=== PATIENT | male | born 1965 | race African-American/Black ===

== ENCOUNTER 2017-07-28 12:16 | Emergency (ER) | payer OTHER ==
[~2017-07-28] VITALS: Ht 177.8 cm; Wt 105.0 kg
[~2017-07-28 12:16] MED LIST: METF500T7 PO
[2017-07-28] MEDS ORDERED: LISI2.5T47 PO (12:22)
[2017-07-28] MEDS ORDERED: CLONIDINE 0.1MG TABLET PO ONE (16:00)
[2017-07-28 16:16] LABS: BASOPHILS % 0.6 % (0.0-2.0); EOSINOPHILS % 0.9 % (0.0-5.0); HEMATOCRIT. 42.2 % (42.0-52.0); LYMPHOCYTES % 23.3 % (20.0-50.0); MEAN CORPUSCULAR HEMOGLOBIN 27.4 pg (28.0-32.0); MEAN CORPUSCULAR VOLUME 82.6 fL (80.0-94.0); MEAN PLATELET VOLUME 8.5 fl (7.4-10.4); MONOCYTES % 7.7 % (2.0-8.0); NEUTROPHILS % 67.5 % (40.0-76.0); PLATELET 187 x1000/uL (130-400); RED BLOOD CELL COUNT 5.11 mill/uL (4.7-6.1); RED CELL DISTRIBUTION WIDTH 14.5 % (11.6-14.6)
[2017-07-28 16:20] LABS: CHLORIDE 101 mEq/L (98-107)
[2017-07-28 17:44] VITALS: BP 148/96
== END 2017-07-28 17:52 | disposition home or self-care (01) ==
LOC: ER 12:24
DX: I10 Essential (primary) hypertension (principal); R53.1 Weakness; E11.9 Type 2 diabetes mellitus without complications; E78.00 Pure hypercholesterolemia, unspecified; F41.0 Panic disorder [episodic paroxysmal anxiety]; Z83.3 Family history of diabetes mellitus; Z91.14 Patient's other noncompliance with medication regimen; Z90.49 Acquired absence of other specified parts of digestive tract
CPT/HCPCS: 36415; 80053; 85025; 93005; 99285

== ENCOUNTER 2020-02-07 02:02 | Emergency (ER) | payer OTHER ==
[~2020-02-07] VITALS: Ht 175.3 cm; Wt 82.0 kg
[~2020-02-07 02:02] MED LIST changes: +LISI2.5T47 PO; +METF500T20 PO; -METF500T7 PO
[2020-02-07] MEDS ORDERED: SODIUM CHLORIDE 0.9% 1,000 ML IV ONE ×2 (02:07→02:15)
[2020-02-07] MEDS ORDERED: DILTIAZEM HCL 5MG/ML 5ML VIAL IV ONE ×2 (02:15→03:00)
[2020-02-07 02:47] LABS: CHLORIDE 98 mEq/L (98-107)
[2020-02-07 02:50] LABS: BASOPHILS % 0.5 % (0.0-2.0); EOSINOPHILS % 1.4 % (0.0-5.0); HEMATOCRIT. 43.3 % (42.0-52.0); HEMOGLOBIN. 14.2 g/dL (14.0-18.0); LYMPHOCYTES % 50.9 % (20.0-50.0); MEAN CORPUSCULAR VOLUME 85.3 fL (80.0-94.0); MEAN PLATELET VOLUME 9.2 fl (7.4-10.4); NEUTROPHILS % 38.2 % (40.0-76.0); PLATELET 225 x1000/uL (130-400); RED BLOOD CELL COUNT 5.08 mill/uL (4.7-6.1); RED CELL DISTRIBUTION WIDTH 13.8 % (11.6-14.6)
[2020-02-07 02:56] LABS: PROTHROMBIN TIME 10.3 sec (9.6-11.0)
[2020-02-07] MEDS ORDERED: AMIODARONE HCL 900 MG in DEXT 5% WATER 482 ML IV ONE (03:30)
[2020-02-07] MEDS ORDERED: LORAZEPAM 2MG/ML CPJ IV ONE (03:30)
[2020-02-07] MEDS ORDERED: INSULIN LISPRO 100 UNITS/ML SUBCUT ONE (04:15)
[2020-02-07] MEDS ORDERED: DILTIAZEM HCL 125 MG in DEXT 5% WATER 100 ML IV ONE (04:15)
[2020-02-07] MEDS ORDERED: DILTIAZEM HCL 125 MG in DEXT 5% WATER 100 ML IV SCH (04:30)
[2020-02-07] MEDS ORDERED: AMIODARONE HCL 900 MG in DEXT 5% WATER 482 ML IV SCH (04:40)
[2020-02-07 04:43] LABS: CLARITY URINE CLEAR (CLEAR); COLOR URINE YELLOW (YELLOW); KETONES URINE NEGATIVE (NEGATIVE); LEUKOCYTE ESTERASE URINE NEGATIVE (NEGATIVE); NITRITE URINE NEGATIVE (NEGATIVE); OCCULT BLOOD URINE NEGATIVE (NEGATIVE); PROTEIN URINE TRACE (NEGATIVE); SPECIFIC GRAVITY URINE 1.031 (1.005-1.030); UROBILINOGEN URINE 0.2 E.U./dL (0.2-1.0)
[2020-02-07 08:00] VITALS: BP 147/88
[2020-02-07 08:41] LABS: T4 FREE 1.29 ng/dL (0.76-1.46)
== END 2020-02-07 08:00 | disposition left against medical advice (07) ==
LOC: ER 02:02 → ENRESERV 07:28 → CANRESERV 07:28 → ER 08:00 → CANBEDREQ 18:42
DX: R06.02 Shortness of breath (principal); R07.89 Other chest pain; E11.9 Type 2 diabetes mellitus without complications; E78.00 Pure hypercholesterolemia, unspecified; I10 Essential (primary) hypertension; Z90.49 Acquired absence of other specified parts of digestive tract
CPT/HCPCS: 36415; 71045; 74176; 80053; 80061; 81003; 82962; 83036; 83605; 83690; 83880; 84145; 84439; 84443; 84484; 85025; 85610; 87040; 87086; 93005; 96361; 96372; 96374; 96375; 96376; 99285; J0282; J1815; J2060; J3490; J7030; J7060

== ENCOUNTER 2022-02-12 12:48 | Emergency (ER) | payer OTHER ==
[~2022-02-12] VITALS: Ht 175.3 cm; Wt 105.0 kg
[~2022-02-12 12:48] MED LIST changes: +METF-907 PO; -METF500T20 PO
[2022-02-12 14:13] LABS: BASOPHILS % 0.3 % (0.0-2.0); EOSINOPHILS % 1.1 % (0.0-5.0); HEMATOCRIT. 43.6 % (42.0-52.0); HEMOGLOBIN. 14.5 g/dL (14.0-18.0); LYMPHOCYTES % 24.9 % (20.0-50.0); MEAN CORPUSCULAR HEMOGLOBIN 28.1 pg (28.0-32.0); MEAN CORPUSCULAR VOLUME 84.4 fL (80.0-94.0); MEAN PLATELET VOLUME 9.1 fl (7.4-10.4); NEUTROPHILS % 66.7 % (40.0-76.0); PLATELET 174 x1000/uL (130-400); RED BLOOD CELL COUNT 5.17 mill/uL (4.7-6.1); RED CELL DISTRIBUTION WIDTH 14.2 % (11.6-14.6)
[2022-02-12 14:21] LABS: CHLORIDE 102 mEq/L (98-107)
[2022-02-12] MEDS ORDERED: IOHEXOL-350 100 ML BOTTLE ONE (15:49)
[2022-02-12] MEDS ORDERED: ASPIRIN 325MG EC TABLET PO NR (16:30)
[2022-02-12] MEDS ORDERED: ATORVASTATIN CALCIUM 40MG TABLET PO NR (16:30)
[2022-02-12] MEDS ORDERED: ACETAMINOPHEN 325MG TABLET PO ONE (16:30)
[2022-02-12 18:00] VITALS: BP 172/98
== END 2022-02-12 18:15 | disposition home or self-care (01) ==
LOC: ER 12:48 → CANBEDREQ 17:58 → ER 18:15
DX: G45.9 Transient cerebral ischemic attack, unspecified (principal); I10 Essential (primary) hypertension; E11.9 Type 2 diabetes mellitus without complications; E78.00 Pure hypercholesterolemia, unspecified; Z79.84 Long term (current) use of oral hypoglycemic drugs
CPT/HCPCS: 36415; 70450; 70496; 80053; 82962; 85025; 99285; Q9967; Z7610

== ENCOUNTER 2025-02-13 15:36 | Emergency (ER) | payer OTHER ==
[~2025-02-13] VITALS: Ht 177.8 cm; Wt 105.0 kg
[2025-02-13 15:43] VITALS: O2SAT 97
[2025-02-13 16:27] LABS: BASOPHILS % 0.8 % (0.0-2.0); EOSINOPHILS % 1.0 % (0.0-5.0); HEMATOCRIT. 41.2 % (42.0-52.0); HEMOGLOBIN. 13.6 g/dL (14.0-18.0); LYMPHOCYTES % 23.4 % (20.0-50.0); MEAN PLATELET VOLUME 8.1 fl (7.4-10.4); MONOCYTES % 7.6 % (2.0-8.0); NEUTROPHILS % 67.2 % (40.0-76.0); PLATELET 242 x1000/uL (130-400); RED BLOOD CELL COUNT 4.95 mill/uL (4.7-6.1); RED CELL DISTRIBUTION WIDTH 13.8 % (11.6-14.6)
[2025-02-13 16:42] LABS: CREATININE 2.1 mg/dL (0.6-1.3); ETHANOL BLOOD < 10 mg/dL (<10); TROPONIN I HIGH SENSITIVITY 23 ng/L (3.0-53); UREA NITROGEN BLOOD 15 mg/dL (9-23)
[2025-02-13 16:44] LABS: ASPARTATE AMINOTRANSFERASE 18 IU/L (<34); BILIRUBIN DIRECT 0.1 mg/dL (<=3.0); BILIRUBIN TOTAL 0.5 mg/dL (0.1-1.0); PROTEIN TOTAL 7.0 g/dL (6.0-8.3)
[2025-02-13] MEDS: LABETALOL 5MG/ML 4ML INJ IV ONE ×2 (17:04→17:30)
[2025-02-13] MEDS: MAGNESIUM 1 G PREMIX 100 ML IV ONE (17:41)
[2025-02-13] MEDS: POTASSIUM CHLORIDE 20MEQ/PACKET PO ONE (17:41)
[2025-02-13] MEDS ORDERED: AMLO2.5T45 MT (17:54)
[2025-02-13] MEDS ORDERED: LISI2.5T47 PO (17:54)
[2025-02-13 19:16] VITALS: BP 233/134; PULSE 111; RESP 20; TEMP 37; O2SAT 100
[2025-02-13] MEDS ORDERED: IOHEXOL-350 100 ML BOTTLE ONE (21:53)
== END 2025-02-13 19:18 | disposition left against medical advice (07) ==
LOC: ER 15:36 → EDBEDREQ 17:48 → EDBEDREQTM 17:48 → ER 19:18 → CMPBEDREQ 02-14 08:25
DX: I16.1 Hypertensive emergency (principal); E11.9 Type 2 diabetes mellitus without complications; E78.00 Pure hypercholesterolemia, unspecified; I11.9 Hypertensive heart disease without heart failure; F41.0 Panic disorder [episodic paroxysmal anxiety]; Z90.49 Acquired absence of other specified parts of digestive tract; Z96.649 Presence of unspecified artificial hip joint
CPT/HCPCS: 80076; 80048; 80320; 83880; 83690; 83735; 85025; 85379; 84484; 36415; 71045; 71275; 93005; 96365; 96375; 99285; Q9967; J3490; J3475; G0480